=== PATIENT | female | born 2000 | race Two or more races ===

== ENCOUNTER 2021-11-02 15:23 | Emergency (ER) | payer MEDICAID ==
[~2021-11-02] VITALS: Ht 167.6 cm; Wt 85.0 kg
[2021-11-02] MEDS ORDERED: ONDANSETRON HCL 4MG/2ML INJ IV STA (16:09)
[2021-11-02] MEDS ORDERED: MORPHINE SULFATE 4 MG/ML CPJ (NOT FOR IM USE) IV STA (16:09)
[2021-11-02 18:32] LABS: BASOPHILS % 0.4 % (0.0-2.0); EOSINOPHILS % 0.9 % (0.0-5.0); HEMATOCRIT. 40.5 % (36.0-48.0); HEMOGLOBIN. 13.6 g/dL (12.0-16.0); LYMPHOCYTES % 10.8 % (20.0-50.0); MEAN CORPUSCULAR HEMOGLOBIN 31.2 pg (28.0-32.0); MEAN CORPUSCULAR VOLUME 92.6 fL (81.0-99.0); MEAN PLATELET VOLUME 8.5 fl (7.4-10.4); MONOCYTES % 8.2 % (2.0-8.0); NEUTROPHILS % 79.7 % (40.0-76.0); PLATELET 285 x1000/uL (130-400); RED BLOOD CELL COUNT 4.37 mill/uL (4.2-5.4)
[2021-11-02 18:38] LABS: CHLORIDE 108 mEq/L (98-107)
[2021-11-02 18:44] LABS: HCG SCREEN NEGATIVE
[2021-11-02] MEDS ORDERED: IOHEXOL-300 100 ML BOTTLE ONE (20:55)
[2021-11-02 23:45] VITALS: BP 104/35
== END 2021-11-03 | disposition home or self-care (01) ==
LOC: ER 15:23
DX: M54.2 Cervicalgia (principal); R07.89 Other chest pain; M25.561 Pain in right knee; R10.30 Lower abdominal pain, unspecified
CPT/HCPCS: 36415; 71045; 71260; 72125; 74177; 80053; 81025; 84703; 85025; 93005; 96374; 96375; 99285; J2270; J2405; Q9967